=== PATIENT | female | born 1980 | race Caucasian/White ===

== ENCOUNTER 2019-01-26 20:49 | Emergency (ER) | payer BC ==
[~2019-01-26] VITALS: Ht 152.4 cm; Wt 102.1 kg
--- NOTE | ~2019-01-26 | EKG ---
[place], [place] ELECTROCARDIOGRAM REPORT NAME: JESSENIA CARD UNIT #: [id number] ROOM: DOCTOR: EPIPHANY DRAFT REPORT BIRTHDATE: [address] [facility] Test Date: 2019-01-26 Test Time: 21:23:29 Pat Name: JESSENIA CARD Department: er Room: 5 Gender: F Wheel Inspector: Valeria Montenegro : 1980 Requested By: FADIA GONSALES Order Number: [id number] Reading MD: Mono Owusu MD Measurements Intervals [place] Rate: 85 P: 33 WV: 145 QRS: -18 QRSD: 104 T: 11 QT: 392 QTc: 467 Interpretive Statements Sinus rhythm Inferior infarct, old Electronically Signed On 01-30-2019 4:07:57 PDT by Mono Owusu MD CM:EKGRPT:ELECTROCARDIOGRAM REPORT [id number] FADIA GONSALES MD EPIPHANY DRAFT REPORT FADIA GONSALES MD
[2019-01-26 21:21] LABS: BASO # 0.1 10*3/uL (0.0-0.1); BASO % 0.7 % (0.0-1.0); EOS # 0.4 10*3/uL (0.0-0.4); EOS % 4.9 % (1.0-4.0); HEMATOCRIT 31.8 % (37.0-47.0); HEMOGLOBIN 9.4 g/dl (12.0-16.0); LYMPH # 2.3 10*3/uL (1.3-4.4); LYMPH % 25.8 % (27.0-41.0); MEAN CELL VOLUME 76.4 fl (81.0-99.0); MEAN CORPUSCULAR HGB 22.6 pg (27.0-31.0); MEAN CORPUSCULAR HGB CONC 29.6 g/dl (33.0-37.0); MONO # 0.6 10*3/uL (0.1-1.0); MONO % 6.3 % (3.0-9.0); NEUT # 5.6 10*3/uL (2.3-7.9); NEUT % 62.1 % (47.0-73.0); PLATELET COUNT AUTOMATED 394 10*3/uL (130-400); RED BLOOD COUNT 4.16 10*6/uL (4.10-5.10)
[2019-01-26 21:38] LABS: ALBUMIN 3.4 gm/dl (3.1-4.5); ALKALINE PHOSPHATASE 115 U/L (45-117); BUN 15 mg/dl (7-24); CHLORIDE 109 mmol/L (98-107); CREATININE 0.82 mg/dL (0.55-1.02); LIPASE 133 U/L (73-393); POTASSIUM 3.8 mmol/L (3.5-5.1); SGPT/ALT 21 U/L (12-78); SODIUM 139 mmol/L (136-145); TOTAL PROTEIN 7.4 gm/dL (6.4-8.2)
[2019-01-26 21:40] LABS: SGOT/AST 12 IU/L (3-35)
[2019-01-26 22:42] LABS: BILIRUBIN NEGATIVE (NEGATIVE); BLOOD 2+ (NEGATIVE); CLARITY CLOUDY (CLEAR); COLOR YELLOW (YELLOW); GLUCOSE NEGATIVE (NEGATIVE); KETONE NEGATIVE (NEGATIVE); LEUKO ESTERASE 1+ (NEGATIVE); NITRITE POSITIVE (NEGATIVE); SPECIFIC GRAVITY 1.025 (1.005-1.030); UROBILINOGEN 0.2 E.U./dl (0.2-1.0)
[2019-01-26 22:53] LABS: BACTERIA 4+; RBC 0-2 rbc/hpf (0-2)
[2019-01-27] MEDS ORDERED: DICYCLOMINE HCL10 MG PO (00:52)
[2019-01-27] MEDS ORDERED: MACROBID100 M1 PO (01:15)
== END 2019-01-27 01:40 | disposition home or self-care (01) ==
LOC: ED 20:49
PROVIDERS: Emergency Medicine Emergency Medical Services
DX: K80.50 Calculus of bile duct without cholangitis or cholecystitis without obstruction (principal); D50.9 Iron deficiency anemia, unspecified; Z88.0 Allergy status to penicillin; Z98.51 Tubal ligation status

== ENCOUNTER → 2024-11-15 | Outpatient (CLI) | payer BC ==
[~2024-11-15] MED LIST: DICYCLOMINE HCL10 MG PO; MACROBID100 M1 PO
== END | disposition home or self-care (01) ==
LOC: RAD 14:58
PROVIDERS: ATTEND Physician Assistant
DX: M25.572 Pain in left ankle and joints of left foot (principal)

== ENCOUNTER 2025-03-08 12:13 | Emergency (ER) | payer BC ==
[~2025-03-08] VITALS: Ht 152.4 cm; Wt 118.4 kg
[2025-03-08] MEDS ORDERED: CIPROFLOX-DEXA7.5 ML OT (12:55)
== END 2025-03-08 12:59 | disposition home or self-care (01) ==
LOC: ED 12:13
DX: H60.92 Unspecified otitis externa, left ear (principal); Z88.0 Allergy status to penicillin; Z79.899 Other long term (current) drug therapy